=== PATIENT | female | born 1945 | race Caucasian/White ===

== ENCOUNTER 2016-09-28 11:36 | Emergency (ER) | payer MEDICARE ==
[2016-09-28 13:52] LABS: BASOPHIL 0.1 % (0-2); EOSINOPHIL 0 % (0-7); HCT 37.4 % (37.0-47.0); LYMPHOCYTE 3.9 % (15-48); MCH 31.9 pg (25.0-31.0); MCHC 34.8 g/dL (32.0-36.0); MCV 91.9 fL (78.0-100.0); MONOCYTE 8.8 % (0-12); MPV 9.4 fL (6.0-9.5); NEUTROPHIL 87.2 % (41-80); PLT 242 K/uL (150-400); RBC 4.07 M/uL (4.20-5.40); RDW 12.1 % (11.5-14.0); WBC 21.5 K/uL (4.0-10.5)
[2016-09-28 14:13] LABS: ALBUMIN 3.9 g/dL (3.4-4.8); BILIRUBIN - TOTAL 1.4 mg/dL (0.1-1.0); CREATININE 1.4 mg/dL (0.5-1.0); GLOBULIN (CALCULATION) 3.5 g/dL (2.2-4.2); POTASSIUM 3.8 mmol/L (3.5-5.1); TOTAL PROTEIN 7.4 g/dL (6.4-8.3)
[2016-09-28 15:21] LABS: BILIRUBIN NEGATIVE (NEGATIVE); BLOOD 2+ Ery/uL (NEGATIVE); CLARITY CLEAR (CLEAR); COLOR YELLOW (YELLOW); GLUCOSE (U) NORMAL (NORMAL); KETONE (U) NEGATIVE (NEGATIVE); LEUKOCYTES 2+ Leu/uL (NEGATIVE); NITRITE NEGATIVE (NEGATIVE); PROTEIN 1+ mg/dL (NEGATIVE); SPECIFIC GRAVITY <=1.005 (1.001-1.030)
[2016-09-28 15:47] LABS: BACTERIA 1+
== END 2016-09-28 17:32 | disposition home or self-care (01) ==
LOC: FER 11:36
PROVIDERS: Internal Medicine; Nurse Practitioner
DX: N30.00 Acute cystitis without hematuria (principal); R51 Headache
CPT/HCPCS: 36415; 71020; 80053; 81001; 83605; 85025; 87040; 87076; 87088; 87186; 87804; 87899; J1885

== ENCOUNTER 2016-09-29 11:24 | Inpatient (IN) | payer MEDICARE ==
[2016-09-29 12:07] LABS: BASOPHIL 0.1 % (0-2); EOSINOPHIL 0 % (0-7); HCT 35.1 % (37.0-47.0); HGB 12.2 g/dl (12.5-16.0); LYMPHOCYTE 1.2 % (15-48); MCH 31.9 pg (25.0-31.0); MCHC 34.8 g/dL (32.0-36.0); MCV 91.6 fL (78.0-100.0); MONOCYTE 7.2 % (0-12); MPV 9.9 fL (6.0-9.5); NEUTROPHIL 91.5 % (41-80); PLT 243 K/uL (150-400); RBC 3.83 M/uL (4.20-5.40); RDW 12.2 % (11.5-14.0)
[2016-09-29 12:13] LABS: LACTIC ACID 2.2 mmol/L (0.5-2.2)
[2016-09-29 12:17] LABS: ALBUMIN 3.3 g/dL (3.4-4.8); BILIRUBIN - TOTAL 1.4 mg/dL (0.1-1.0); CREATININE 1.8 mg/dL (0.5-1.0); GLOBULIN (CALCULATION) 3.3 g/dL (2.2-4.2); POTASSIUM 3.9 mmol/L (3.5-5.1); TOTAL PROTEIN 6.6 g/dL (6.4-8.3)
[2016-09-29 12:18] LABS: WBC 28.5 K/uL (4.0-10.5)
[2016-09-29 15:04] LABS: BILIRUBIN 1+ mg/dL (NEGATIVE); BLOOD 2+ Ery/uL (NEGATIVE); CLARITY HAZY (CLEAR); COLOR AMBER (YELLOW); GLUCOSE (U) NORMAL (NORMAL); KETONE (U) NEGATIVE (NEGATIVE); LEUKOCYTES 2+ Leu/uL (NEGATIVE); NITRITE NEGATIVE (NEGATIVE); PROTEIN 2+ mg/dL (NEGATIVE); UROBILINOGEN >=8.0 mg/dL (0.2-1.0); pH 5.5 (5.0-9.0)
[2016-09-29 15:09] LABS: URINARY WBC 20-50
[2016-09-29 15:10] LABS: BACTERIA 1+
[2016-09-29 15:11] LABS: AMORPHOUS URATES CRYSTALS TRACE
[2016-09-30 04:14] LABS: HCT 30.7 % (37.0-47.0); HGB 10.5 g/dl (12.5-16.0); MCH 31.5 pg (25.0-31.0); MCHC 34.2 g/dL (32.0-36.0); MCV 92.2 fL (78.0-100.0); MPV 9.8 fL (6.0-9.5); RBC 3.33 M/uL (4.20-5.40); RDW 12.4 % (11.5-14.0); WBC 19.6 K/uL (4.0-10.5)
[2016-09-30 04:34] LABS: CREATININE 1.5 mg/dL (0.5-1.0); POTASSIUM 3.8 mmol/L (3.5-5.1)
--- NOTE | 2016-09-30 05:23 | NUR ---
NOTIFIED DR MONTES DE OCA THAT PT WANTED SOMETHING TO HELP HER SLEEP. ORDERS GIVEN BENADRYL 25 MG PO HS, MAY REPEAT X1 DOSE IF NOT EFFECTIVE IN ONE HR.
[2016-10-01 04:56] LABS: HCT 30.7 % (37.0-47.0); HGB 10.4 g/dl (12.5-16.0); MCH 31.5 pg (25.0-31.0); MCHC 33.9 g/dL (32.0-36.0); MPV 9.6 fL (6.0-9.5); RBC 3.3 M/uL (4.20-5.40); RDW 12.7 % (11.5-14.0); WBC 12.6 K/uL (4.0-10.5)
[2016-10-01 08:10] LABS: CREATININE 1.1 mg/dL (0.5-1.0); POTASSIUM 3.4 mmol/L (3.5-5.1)
== END 2016-10-01 11:00 | disposition home or self-care (01) | DRG 872 ==
LOC: FER 11:24 → FTCU 16:35
PROVIDERS: Internal Medicine; Nurse Practitioner; ADMIT Internal Medicine
DX: A41.9 Sepsis, unspecified organism (principal); N17.9 Acute kidney failure, unspecified; I95.9 Hypotension, unspecified; E87.2 Acidosis; E87.1 Hypo-osmolality and hyponatremia; N39.0 Urinary tract infection, site not specified; N10 Acute pyelonephritis; R65.20 Severe sepsis without septic shock; R53.1 Weakness; B96.20 Unspecified Escherichia coli [E. coli] as the cause of diseases classified elsewhere
CPT/HCPCS: 36415; 71020; 80048; 80053; 81001; 83605; 84145; 85025; 87040; 87076; 87088; 87186; 87804; 87899; 93005; J1885; J2543